=== PATIENT | female | born 1965 | race Caucasian/White ===

== ENCOUNTER 2022-01-21 16:09 | Day surgery (SDC) | payer OTHER ==
[2022-01-21] MEDS ORDERED: Sodium Chloride 0.9(Preservative Free) 10 ML IJ ONE (16:10)
[2022-01-21] MEDS ORDERED: XYLOCAINE-MPF 1% 5ML SDV IJ ONE (16:10)
[2022-01-21] MEDS ORDERED: Decadron 4 MG INJ IV ONE (16:10)
--- NOTE | 2022-01-21 20:42 | XRAY ---
Indication: Cervical PERLA. Intraoperative fluoroscopy provided for 1 minutes 13 seconds. 2 digital spot image submitted for interpretation demonstrates posterior needle tip projecting posterior to cervical thoracic junction. Small amount of contrast injected for needle tip placement. Correlate with intraoperative findings/report.
--- NOTE | 2022-01-22 09:36 | XRAY ---
1 minute 13 seconds of fluoroscopy was used in surgery for a cervical PERLA.
== END 2022-01-21 18:05 | disposition home or self-care (01) ==
LOC: SDC-PAIN 16:09
PROVIDERS: ATTEND Psychiatry & Neurology Pain Medicine
DX: M54.12 Radiculopathy, cervical region (principal); Z79.899 Other long term (current) drug therapy
CPT/HCPCS: 62321; 72040; 77003; 81025; J1100; Q9966